=== PATIENT | male | born 1960 | race American Indian/Alaskan Native ===

== ENCOUNTER 2019-06-04 07:39 | Day surgery (SDC) | payer OTHER | END 2019-06-04 13:55 | disposition home or self-care (01) | LOC: AMB-ENDOS 07:39 | DX: K57.32 Diverticulitis of large intestine without perforation or abscess without bleeding (principal); K64.8 Other hemorrhoids; Z12.11 Encounter for screening for malignant neoplasm of colon ==

== ENCOUNTER 2023-07-28 19:23 | Emergency (ER) | payer OTHER ==
[~2023-07-28] VITALS: Ht 172.7 cm; Wt 77.1 kg
[2023-07-28] MEDS ORDERED: IRBESARTAN-HCT1 EACH PO (20:02)
[2023-07-28] MEDS ORDERED: LEXAPRO20 MG PO (20:02)
== END 2023-07-28 22:39 | disposition home or self-care (01) ==
LOC: ER 19:23
DX: M54.16 Radiculopathy, lumbar region (principal)